=== PATIENT | male | born 1975 | race Two or more races ===

== ENCOUNTER 2024-07-23 10:36 | Emergency (ER) | payer OTHER ==
[~2024-07-23] VITALS: Ht 177.8 cm; Wt 79.4 kg
[2024-07-23] MEDS ORDERED: cloNIDine HCL 0.2 MG TABLET PO STA (12:49)
[2024-07-23] MEDS ORDERED: CLONIDINE HCL 0.1 MG TABLET PO ONE (13:05)
[2024-07-23 13:39] LABS: PH,URINE 7.5 (5.0-8.0); URINE APPEARANCE Clear; URINE BILIRRUBIN Negative (NEGATIVE); URINE BLOOD Negative; URINE COLOR Yellow; URINE GLUCOSE Negative (NEGATIVE); URINE KETONE Negative (NEGATIVE); URINE LEUKOCYTE Negative; URINE NITRATE Negative; URINE PROTEIN Negative (NEGATIVE)
[2024-07-23 13:42] LABS: HEMATOCRIT 42.1 % (39.0-48.0); HEMOGLOBIN 14.1 g/dL (13-16.00); MEAN CELL VOLUME 84.2 fL (80.0-100.00); MEAN CORPUSCULAR HEMOGLOBIN 28.2 pg (27.00-32.0); MEAN CORPUSCULAR HGB CONC 33.5 g/dl (32.0-36.0); PLATELET COUNT 247 K/uL (150-450); RED CELL DISTRIBUTION WIDTH 13.8 % (11.5-14.5)
[2024-07-23 13:50] LABS: URINE BACTERIA 2.5 uL (0.0-1933); URINE RBC 0.1 uL (0.0-20.8); URINE WBC 0.1 uL (0.0-23.2)
[2024-07-23 14:15] LABS: CALCIUM 9.3 mg/dL (8.5-10.1); CREATININE SERUM 0.66 mg/dL (0.70-1.30); GFR 128.28; POTASSIUM 4.44 mEq/L (3.5-5.1)
== END 2024-07-23 16:26 | disposition home or self-care (01) ==
LOC: ER 10:37
PROVIDERS: General Practice
DX: R53.81 Other malaise (principal); R53.1 Weakness; I10 Essential (primary) hypertension